=== PATIENT | female | born 1965 | race Two or more races ===

== ENCOUNTER 2022-04-04 17:57 | Inpatient (IN) | payer MEDICAID ==
[~2022-04-04] VITALS: Ht 172.7 cm; Wt 90.7 kg
[2022-04-04 18:15] VITALS: BP 141/66
[2022-04-04] MEDS ORDERED: ACETAMINOPHEN 650 MG SUPP RC ONE (18:25)
[2022-04-04] MEDS ORDERED: VANCOMYCIN 1,000 MG in DEXTROSE 5% 250 ML IV ONE (18:40)
--- NOTE | 2022-04-04 18:57 | NUR ---
ELAINE AND FLU SWABS COLLECTED AND HANDED TO TAX APPRAISER
[2022-04-04] MEDS ORDERED: VANCOMYCIN 1,000 MG VIAL ONE ×2 (19:02→21:53)
[2022-04-04 19:05] LABS: BASOPHILS % (AUTO) 0.1 % (0.0-2.0); HEMATOCRIT 30.4 % (36-48); HEMOGLOBIN 10.2 g/dL (12.0-16.0); LYMPHOCYTES # (AUTO) 0.4 K/uL (2.5-16.5); LYMPHOCYTES % (AUTO) 2.4 % (20.5-51.1); MEAN CORPUSCULAR HEMOGLOBIN 29 pg (27-31); MEAN CORPUSCULAR HGB CONC 34 g/dL (33-37); MONOCYTES # (AUTO) 0.2 K/uL (0.8-1.0); MONOCYTES % (AUTO) 1.4 % (1.7-9.3); NEUTROPHILS # (AUTO) 16.1 K/uL (1.8-7.7); NEUTROPHILS % (AUTO) 96.1 % (42.2-75.2); PLATELET COUNT (AUTO) 116 K/uL (140-450); RED BLOOD CELL COUNT(AUTO) 3.54 MIL/uL (4.20-5.40); RED CELL DISTRIBUTION WIDTH 15.4 % (11.6-13.7); WHITE BLOOD COUNT (AUTO) 16.8 K/uL (4.8-10.8)
--- NOTE | 2022-04-04 19:14 | NUR ---
56/F BIBA FROM HOME. PER EMS 911 WAS CALLED STATING PATIENT ALTERED TODAY, C/O LEFT LEG REDNESS AND SWELLING. UPON ARRIVAL PATIENT FEBRILE AT 101.7. PATIENT C/O WEAKNESS STATING "IM REALLY TIRED." PATIENT IN AND OUT OF SLEEP WHEN SPEAKING WITH HER, PATIENT ON BEDSIDE TRACKWALKER, DR. MACHUCA AWARE OF PATIENT.
--- NOTE | 2022-04-04 19:32 | NUR ---
PATIENT TEMP 102.4, DR. MACHUCA MADE AWARE.
--- NOTE | 2022-04-04 19:32 | NUR ---
Pt report given to ARIELA CUEVAS. Transfer of care at this time.
[2022-04-04 19:37] LABS: ALBUMIN 2.6 g/dL (3.4-5.0); ANION GAP 11.5 (8-16); CARBON DIOXIDE 22.1 mmol/L (21-32); CREATININE 0.9 mg/dL (0.6-1.3); TOTAL BILIRUBIN 0.7 mg/dL (0.0-1.0)
[2022-04-04 19:47] LABS: POTASSIUM 2.6 mmol/L (3.5-5.1)
[2022-04-04 20:12] LABS: PROTHROMBIN TIME 12.7 secs (10.8-13.4)
[2022-04-04 20:21] LABS: CKMB RELATIVE INDEX 0.7 (0.0-2.5); CREATINE KINASE MB 1.7 ng/mL (0-3.6)
[2022-04-04] MEDS ORDERED: NACL 0.9% 2,000 ML IV ONE (20:50)
[2022-04-04] MEDS ORDERED: cefTRIAXone 1,000 MG VIAL ONE (21:55)
--- NOTE | 2022-04-04 22:22 | NUR ---
TO CT VIA [facility]
--- NOTE | 2022-04-05 01:00 | NUR ---
RESTING QUIETLY. C/O BEING COLD. WARM BLANKETS GIVEN
[2022-04-05] MEDS: NACL 0.9% 1,000 ML IV SCH ×2 (01:09→11:11)
--- NOTE | 2022-04-05 03:08 | NUR ---
AMBULATED TO BR WITH MINIMAL ASSIST
[2022-04-05 05:03] LABS: APPEARANCE,URINE CLEAR (CLEAR); BILIRUBIN,URINE 1+ (NEGATIVE); BLOOD, URINE 3+ (NEGATIVE); COLOR,URINE BROWN (YELLOW); LEUKOCYTE ESTERASE ,URINE NEGATIVE (NEGATIVE); NITRITE, URINE NEGATIVE (NEGATIVE); UGLUCOSE NEGATIVE (NEGATIVE)
[2022-04-05 05:10] LABS: RBC,URINE 20-50 /HPF (0-5)
[2022-04-05 05:11] LABS: TRICHOMONAS,URINE None Seen /HPF (None Seen); YEAST,URINE Rare /HPF (None Seen)
[2022-04-05 05:13] LABS: BARBITURATE, URINE NEGATIVE ng/ml (NEG <=200); BENZODIAZEPINE, URINE NEGATIVE ng/mL (NEG <=200); CANNABINOID, URINE NEGATIVE ng/mL (NEG <=50); COCAINE, URINE NEGATIVE ng/mL (NEG <=300); OPIATE, URINE NEGATIVE ng/mL (NEG <=2000); PHENCYCLIDINE SCREEN,URINE POSITIVE ng/mL (NEG <=25)
[2022-04-05 06:35] LABS: HEMATOCRIT 31.6 % (36-48); HEMOGLOBIN 10.7 g/dL (12.0-16.0); MEAN CORPUSCULAR HEMOGLOBIN 29 pg (27-31); MEAN CORPUSCULAR HGB CONC 34 g/dL (33-37); MEAN CORPUSCULAR VOLUME 85.8 fL (80-94); PLATELET COUNT (AUTO) 125 K/uL (140-450); RED BLOOD CELL COUNT(AUTO) 3.68 MIL/uL (4.20-5.40); RED CELL DISTRIBUTION WIDTH 15.7 % (11.6-13.7); WHITE BLOOD COUNT (AUTO) 14.7 K/uL (4.8-10.8)
[2022-04-05] MEDS: HYDROcodone/APAP 5/325 MG 1 TAB TAB PO PRN ×3 (08:00→21:56)
--- NOTE | 2022-04-05 08:00 | NUR ---
56YR OLD FEMALE C/O LOWER EXT SWELLING. PT IS TELE ADMIT. TELE HOLD. DX OF CELLULITIS TO LOWER EXT AND SESPIS. PT IS A&OX4. LOWER LEG SWELLING /PAIN 04/01. SKIN COLOR ON THEODORE LEGS ARE NICHOLS/BLACK. WARM TO THE TOUCH. RESP EVEN AND UNLABORED. ON FOUNTAIN ATTENDANT AT BEDSIDE. HOB ELEVATED. BED AT LOWEST LEVEL. PENDING BED AVAIL.
--- NOTE | 2022-04-05 08:15 | NUR ---
PT MOVED TO ER BED 2.
[2022-04-05 08:31] LABS: ALBUMIN 2.7 g/dL (3.4-5.0); ANION GAP 8.2 (8-16); CARBON DIOXIDE 26.4 mmol/L (21-32); CREATININE 0.9 mg/dL (0.6-1.3); TOTAL BILIRUBIN 0.9 mg/dL (0.0-1.0)
[2022-04-05 08:32] LABS: POTASSIUM 2.6 mmol/L (3.5-5.1)
--- NOTE | 2022-04-05 08:40 | NUR ---
RECEIVED CRITICAL LAB OF POTASSIUM 2.6. DR TAMEZ NOTIFIED. RECEIVED ORDERS OF KDUR 40MEQ PO AND KRIDER 40MEQ IV. ORDERS PLACED.
[2022-04-05] MEDS ORDERED: POTASSIUM CHLORIDE 10 MEQ TABER PO SCH (08:43)
[2022-04-05 08:44] LABS: BASOPHILS % (MANUAL) 0 % (0-2); EOSINOPHILS % (MANUAL) 0 % (0-4); LYMPHOCYTES % (MANUAL) 4 % (20-46); MONOCYTES % (MANUAL) 2 % (5-12)
--- NOTE | 2022-04-05 09:14 | NUR ---
PT IS EATING BREAKFAST AT BEDSIDE.
[2022-04-05] MEDS: KCL 20 MEQ/WATER INJ PREMIX 200 ML IV SCH ×2 (09:39→12:05)
--- NOTE | 2022-04-05 10:09 | NUR ---
RESTARTED IV SITE IN L AC 20G.
[2022-04-05] MEDS ORDERED: ACETAMINOPHEN 325 MG TAB PO PRN (10:15)
[2022-04-05] MEDS ORDERED: ONDANSETRON 4 MG/2 ML VIAL IM/IVP PRN (10:15)
[2022-04-05] MEDS ORDERED: ZOLPIDEM 5 MG TAB PO PRN (10:15)
[2022-04-05] MEDS ORDERED: guaiFENesin DM 200/20 MG-10 ML 10 ML UDC PO PRN (10:15)
[2022-04-05] MEDS ORDERED: DOCUSATE SODIUM 100 MG GELCAP PO PRN (10:15)
--- NOTE | 2022-04-05 10:41 | NUR ---
PATIENT HAS BEEN SCREENED AND CATEGORIZED LOW NUTRITION RISK. PATIENT WILL BE SEEN WITHIN 7 DAYS OF ADMISSION. 04/05/22-04/11/[address]
--- NOTE | 2022-04-05 10:44 | NUR ---
DR TAMEZ, ADMITTING MD AT BEDSIDE EVALUATING PT
[2022-04-05 12:12] LABS: CHOL/HDL RATIO 1.9 (1-4.5); FREE T4 (FREE THYROXINE) 0.98 ng/dL (0.76-1.46); MAGNESIUM 1.8 mg/dL (1.8-2.4); PHOSPHORUS 3.1 mg/dL (2.5-4.9); THYROID STIMULATING HORMONE 0.42 uIU/mL (0.34-3.74)
--- NOTE | 2022-04-05 13:15 | NUR ---
PT RESTING. IS TEARFUL DUE TO K+ IV ; PT WAS ADVISED ON THE BURNING SENSATION WHILE INFUSION. PT WAS MEDICATED FOR PAIN. 04/01. HOB ELEVATED. SIDE UP X1. ON THREAD ROLLER. BED AT LOWEST POSITON
--- NOTE | 2022-04-05 13:48 | NUR ---
PERSONAL BELONGINGS AND MED RECONCILE HAVE BEEN UPDATED AND COMPLETED.
--- NOTE | 2022-04-05 14:49 | NUR ---
WALKED PATIENT TO THE BATHROOM. GAIT STEADY, ASSIST STILL NEEDED. URINE OBTAINED AND SENT TO LAB
--- NOTE | 2022-04-05 16:58 | NUR ---
PATIENT SLEEPING. RESP EVEN AND UNLABORED. NO DISTRESS NOTED. PT IS ON BEDSIDE PROOFER. HOB ELEVATED. SIDE RAILS UPX2 BED AT LOWEST POSITION
--- NOTE | 2022-04-05 18:49 | NUR ---
DAUGHTER CALLED PATIENT
--- NOTE | 2022-04-05 19:24 | NUR ---
AWAKE, STANDING AT BEDSIDE BATHING
--- NOTE | 2022-04-05 19:50 | NUR ---
AMBULATED TO BR WITH STEADY GAIT
--- NOTE | 2022-04-05 20:30 | NUR ---
PT ADMITTED TO [facility] FROM ER THRU [facility] WITH A DIAGNOSIS OF SEPSIS AND CELLULITIS. PT IS AMBULATORY, AOX4, ABLE TO FOLLOW COMMANDS AND VERBALIZE NEEDS. PT IS ON ROOM AIR AND IN REGULAR DIET. PT HAS IV SITED ON LEFT AC GAUGE 20, LEFT WRIST GAUGE 22 AND RIGHT HAND GAUGE 20 RUNNING WITH NS AT 60ML/HR. PT HAS A LEFT LEG SWELLING. PT IS ORIENTED TO HOSPITAL, ROOM, BED BUTTON AND CALL LIGHT. ALL SAFETY MEASURES IMPLEMENTED. CALL LIGHT WITHIN REACH. BED WHEELS LOCKED AND BED IN LOW POSITION.
[2022-04-05] MEDS ORDERED: cefTRIAXone 1,000 MG VIAL ONE (21:49)
--- NOTE | 2022-04-05 21:56 | NUR ---
PT ASKED FOR PAIN MEDICATION FOR HER LEFT LEG. PRN PAIN MEDICATION WAS GIVEN TO PT PER MD ORDER. ALL SAFETY MEASURES IMPLEMENTED. CALL LIGHT WITHIN REACH. BED WHEELS LOCKED AND BED IN LOW POSITION.
--- NOTE | 2022-04-05 22:04 | NUR ---
PRESCRIBED MEDICATION WAS GIVEN TO PT PER MD ORDER. PT TOLERATED IT WELL. ALL SAFETY MEASURES IMPLEMENTED. CALL LIGHT WITHIN REACH. BED WHEELS LOCKED AND BED IN LOW POSITION.
--- NOTE | 2022-04-05 22:20 | NUR ---
PT WAS GIVEN SLEEPING MEDICATION PER PT REQUEST. PT TOLERATED IT WELL. ALL SAFETY MEASURES IMPLEMENTED. CALL LIGHT WITHIN REACH. BED WHEELS LOCKED AND BED IN LOW POSITION.
--- NOTE | 2022-04-06 | NUR ---
PT ASSISTED TO THE BATHROOM AND GAVE WASH CLOTHES. ALL SAFETY MEASURES IMPLEMENTED. BED WHEELS ON LOCKED. BED IN LOW POSITION AND CALL LIGHT WITHIN REACH.
--- NOTE | 2022-04-06 02:00 | NUR ---
PT IS SLEEPING. CHEST RISE AND FALL SYMMETRICALLY NOTED. NO S/S OF RESPIRATORY DISTRESS NOTED. ALL SAFETY MEASURES IMPLEMENTED. BED WHEELS ON LOCKED. BED IN LOW POSITION AND CALL LIGHT WITHIN REACH.
[2022-04-06 04:00] VITALS: BP 135/72
--- NOTE | 2022-04-06 04:00 | NUR ---
PT STILL ON SLEEP WITH THE VS OF BP-135/72, P-81, T-98.7, RR-19 SATING AT 96%. CHEST RISE AND FALL SYMMETRICALLY NOTED. NO S/S OF RESPIRATORY DISTRESS. ALL SAFETY MEASURES IMPLEMENTED. BED WHEELS ON LOCKED. BED IN LOW POSITION AND CALL LIGHT WITHIN REACH.
[2022-04-06] MEDS: HYDROcodone/APAP 5/325 MG 1 TAB TAB PO PRN (04:48)
--- NOTE | 2022-04-06 04:48 | NUR ---
PT COMPLAIN FOR BACK PAIN. PRN PAIN MEDICATION WAS GIVEN TO PT PER MD ORDER. ALL SAFETY MEASURES IMPLEMENTED. BED WHEELS ON LOCKED. BED IN LOW POSITION AND CALL LIGHT WITHIN REACH.
[2022-04-06 05:43] LABS: BASOPHILS % (AUTO) 0.2 % (0.0-2.0); EOSINOPHILS # (AUTO) 0.1 K/uL (0-0.4); EOSINOPHILS % (AUTO) 1.3 % (0.0-4.0); HEMATOCRIT 29.8 % (36-48); HEMOGLOBIN 10.6 g/dL (12.0-16.0); LYMPHOCYTES # (AUTO) 0.9 K/uL (2.5-16.5); LYMPHOCYTES % (AUTO) 8.6 % (20.5-51.1); MEAN CORPUSCULAR HEMOGLOBIN 30 pg (27-31); MEAN CORPUSCULAR HGB CONC 36 g/dL (33-37); MEAN CORPUSCULAR VOLUME 84.4 fL (80-94); MONOCYTES # (AUTO) 0.3 K/uL (0.8-1.0); MONOCYTES % (AUTO) 2.5 % (1.7-9.3); NEUTROPHILS # (AUTO) 9.4 K/uL (1.8-7.7); NEUTROPHILS % (AUTO) 87.4 % (42.2-75.2); PLATELET COUNT (AUTO) 113 K/uL (140-450); RED BLOOD CELL COUNT(AUTO) 3.52 MIL/uL (4.20-5.40); RED CELL DISTRIBUTION WIDTH 15.4 % (11.6-13.7); WHITE BLOOD COUNT (AUTO) 10.7 K/uL (4.8-10.8)
[2022-04-06 05:54] LABS: ANION GAP 12.8 (8-16); CARBON DIOXIDE 22.5 mmol/L (21-32); CREATININE 0.7 mg/dL (0.6-1.3); POTASSIUM 3.3 mmol/L (3.5-5.1)
--- NOTE | 2022-04-06 07:08 | NUR ---
PT IS STABLE. ENDORSED PT TO MORNING SHIFT NURSE FOR CONTINUITY OF CARE.
--- NOTE | 2022-04-06 07:14 | NUR ---
RECEIVED REPORT FROM ELECTRIC MOTOR WINDER NURSE FOR CONTINUITY OF CARE. PATIENT AWAKE VERBALLY RESPONSIVE NO SIGN AND SYMPTOMS OF ANY DISCOMFORT. RESPIRATION EVEN AND NOT LABORED NO SHORTNESS OF BREATH. IV SITE ON LEFT AC ANGELO 20, LEFT WRIST ANGELO 22 AND NS OF 60 RUNNING ON HER RIGHT HAND ANGELO 20, ALL SAFETY MEASURE IN PLACE. LEAD FOR HEART MONITOR INPLACE.
[2022-04-06 08:00] VITALS: BP 134/74
[2022-04-06 08:07] LABS: T4 (THYROXINE) 6.8 ug/dL (4.5-12.0)
[2022-04-06] MEDS: PANTOPRAZOLE 40 MG TABEC PO SCH (09:28)
[2022-04-06] MEDS: NACL 0.9% 1,000 ML IV SCH (10:20)
[2022-04-06] MEDS: POTASSIUM CHLORIDE 10 MEQ TABER PO PRN (11:15)
[2022-04-06 12:00] VITALS: BP 131/74
--- NOTE | 2022-04-06 15:45 | NUR ---
ARLEN ATTEMPTED TO MEET WITH PATIENT AT BEDSIDE TO COMPLETE ASSESSMENT. PATIENT STRUGGLED WITH CONFIRMING INFORMATION ON FILE. PATIENT REPORTS LIVING WITH HER DAUGHTER, NOVEMBER AT THE ADDRESS LISTED. PATIENT UNABLE TO PROVIDE PHONE NUMBER FOR DAUGHTER. Addendum: 04/07/22 at 1311 by Maira Sinclair ARLEN ATTEMPTED TO CALL EMERGENCY CONTACT PHONE NUMBER ON FILE, HOWEVER, PHONE NUMBER IS NOT A WORKING NUMBER. ARLEN CONTACTED [place] [employer]PT TO CONDUCT WELLNESS/ NOTIFICATION CHECK ON DAUGHTER, NOVEMBER WHO IS REPORTED TO RESIDE AT THE ADDRESS LISTED ON FILE WITH PATIENT. POLICE TO BE DISPATCHED TO ADDRESS. POLICE DISPATCH PROVIDED WITH ARLEN INFORMATION ONCE CONTACT MADE. Addendum: 04/07/22 at 1410 by Maira Sinclair ARLEN FIELDED CALL FROM PATIENTS DAUGHTER JIMI WHO WAS CONTACTED BY POLICE. JIMI REPORTS THAT PATIENT RESIDES WITH SUYAPA PATRICK WHO PROVIDES PT WITH NEEDED CARE. JIMI WAS NOTIFIED THAT PATIENT IS READY FOR DC. JIMI REPORTS PT'S SON IN LAW WILL REPLANTING MACHINE CREW PATIENT. Addendum: 04/07/22 at 1439 by Maira WARNER PATIENT STRUGGLED TO CONFIRM VARIOUS DETAILS ON FILE. PATIENT REPORTS LIVING AT THE ADDRESS LISTED WITH HER DAUGHTER, NOVEMBER. PATIENT DENIES MENTAL HEALTH/ SUBSTANCE USE HX, HOWEVER PATIENT TESTED POSITIVE FOR PHENCYCLIDINE AND ALCOHOL, UPON ADMISSION. PT REPORTS RECEIVING SOCIAL SECURITY INCOME SOURCE. PATIENT REPORTS NONCOMPLIANCE WITH MEDICATION SHE BELIEVES DIABETES IN WELL CONTROLLED. ARLEN PROVIDE PATIENT WITH DIABETES RESOURCES. ARLEN ENCOURAGED AND EDUCATED PATIENT ABOUT THE IMPORTANCE OF MEDICATION COMPLIANCE. PATIENT RECEPTIVE. ARLEN FIELDED CALL FROM JIMI, (PT'S DAUGHTER) AND GATHERED COLLATERAL INFORMATION. JIMI PROVIDED COLLATERAL INFORMATION KNOWN TO HER, PT'S DAUGHTER CONFIRMS THAT PATIENT RESIDES WITH PT'S DAUGHTER NOVEMBER. SUYAPA AND PT'S EX-PARTNER PROVIDES PATIENT WITH ASSISTANCE IN ALL ADL'S. JIMI REPORTS THAT PATIENT IS NONCOMPLIANT WITH MEDICATION USE, PATIENT FORGETS AND/OR CHOOSES NOT TO TAKE. ARLEN SPOKE TO JIMI ABOUT THE IMPORTANCE OF RX COMPLIANCE. JIMI WAS IN UNDERSTANDING. JIMI REPORTS HX OF ALCOHOL USE SEVERAL YEARS AGO BUT TO HER KNOWLEDGE PATIENT NO LONGER CONSUMES. JIMI UNABLE TO RECALL PT'S LAST VISIT WITH PCP. JIMI REPORTS SUYAPA UNAVAILABLE TO PROVIDE ADDITIONAL COLLATERAL INFORMATION, AT THIS TIME. DC PLAN IS FOR PATIENT TO RETURN HOME WITH FAMILY PROVIDING TRANSPORTATION AND AIDING IN REQUIRED CARE, IF NEEDED. ARLEN PROVIDED PATIENT WITH SUBSTANCE USE RESOURCES, DIABETES RESOURCES WELL MENTAL HEALTH RESOURCES.
[2022-04-06 16:00] VITALS: BP 135/56
--- NOTE | 2022-04-06 19:13 | NUR ---
GAVE REPORT TO GRINDER NEEDLE TIP NURSE FOR CONTINUITY OF CARE.
--- NOTE | 2022-04-06 19:14 | NUR ---
RECEIVED REPORT FROM DAY SHIFT NURSE FOR CONTINUITY OF PT CARE. PT IS ON BED, AWAKE, ALERT AND ORIENTED X 4. PT ABLE TO VERBALIZED NEEDS. SALINE LOCK INTACT AND PATENT, NO SIGN/SYMPTOM OF INFECTION OR PHLEBITIS. PT DENIES PAIN AT THIS TIME. CONTINUE TO MONITOR.
[2022-04-06 20:00] VITALS: BP 124/76
[2022-04-07] VITALS: BP 110/56
--- NOTE | 2022-04-07 00:15 | NUR ---
PT AMBULATES TO RESTROOM INDEPENDENTLY. NO FALL OR INJURY.
[2022-04-07] MEDS: HYDROcodone/APAP 5/325 MG 1 TAB TAB PO PRN (02:15)
--- NOTE | 2022-04-07 02:15 | NUR ---
PT COMPLAINTS OF PAIN ON LOWER ABDOMEN AND BACK AREA 01/30. PAIN MEDICATION NORCO ADMINISTERED ORDER.
[2022-04-07] MEDS: NACL 0.9% 1,000 ML IV SCH (03:00)
--- NOTE | 2022-04-07 03:15 | NUR ---
PT IS SLEEPING SOUNDLY, NO FACIAL GRIMACING.
[2022-04-07 04:00] VITALS: BP 103/56
[2022-04-07 05:48] LABS: BASOPHILS % (AUTO) 0.2 % (0.0-2.0); EOSINOPHILS # (AUTO) 0.1 K/uL (0-0.4); EOSINOPHILS % (AUTO) 2.2 % (0.0-4.0); HEMATOCRIT 26.2 % (36-48); HEMOGLOBIN 8.9 g/dL (12.0-16.0); LYMPHOCYTES # (AUTO) 0.9 K/uL (2.5-16.5); LYMPHOCYTES % (AUTO) 15.8 % (20.5-51.1); MEAN CORPUSCULAR HEMOGLOBIN 29 pg (27-31); MEAN CORPUSCULAR HGB CONC 34 g/dL (33-37); MEAN CORPUSCULAR VOLUME 85.8 fL (80-94); MONOCYTES # (AUTO) 0.3 K/uL (0.8-1.0); MONOCYTES % (AUTO) 4.4 % (1.7-9.3); NEUTROPHILS # (AUTO) 4.6 K/uL (1.8-7.7); NEUTROPHILS % (AUTO) 77.4 % (42.2-75.2); PLATELET COUNT (AUTO) 120 K/uL (140-450); RED BLOOD CELL COUNT(AUTO) 3.05 MIL/uL (4.20-5.40); RED CELL DISTRIBUTION WIDTH 15.2 % (11.6-13.7)
[2022-04-07 06:37] LABS: CARBON DIOXIDE 23.2 mmol/L (21-32); CREATININE 0.7 mg/dL (0.6-1.3); POTASSIUM 3.2 mmol/L (3.5-5.1)
--- NOTE | 2022-04-07 07:29 | NUR ---
PT IS ON STABLE CONDITION. DENIES OF PAIN. ALL SAFETY MEASURES IN PLACE. CALL LIGHT WITHIN THE REACH. ENDORSED TO DAY SHIFT NURSE FOR CONTINUITY OF CARE.
--- NOTE | 2022-04-07 07:30 | NUR ---
RECEIVED ENDORSEMENT FROM FINANCIAL SERVICES AUDITOR NURSE FOR CONTINUITY OF CARE. PATIENT AWAKE ALERT AND ORIENTED SITTING AT THE EDGE OF HER BED WAITING FOR BREAKFAST. DENIES PAIN OR ANY DISCOMFORT. RESPIRATION EVEN AND NOT LABORED NO SHORTNESS OF BREATH. ALL SAFETY MEASURE IN PLACE.
[2022-04-07 08:00] VITALS: BP 124/75
[2022-04-07] MEDS: PANTOPRAZOLE 40 MG TABEC PO SCH (08:28)
[2022-04-07] MEDS: POTASSIUM CHLORIDE 10 MEQ TABER PO PRN (08:29)
--- NOTE | 2022-04-07 08:30 | NUR ---
PATIENT GIVEN HER DUE MEDICATION AND KDUR FOR K LEVEL OF3.2 TOLERATED WELL. EATING BREAKFAST WELL. CALL LIGHT WITH IN EASY REACH.
--- NOTE | 2022-04-07 09:08 | NUR ---
PATIENT IS ASKING IF SHE CAN TAKE SHOWER DR. HUBER RESPONDED YES.
--- NOTE | 2022-04-07 10:02 | NUR ---
PATIENT IS ASSISTED BY WEB SITE SPECIALIST HAVING SHOWER AT THIS TIME.
[2022-04-07] MEDS ORDERED: IBUP-2213 PO (11:57)
--- NOTE | 2022-04-07 12:00 | NUR ---
PATIENT ON BED RESTING WAITING FOR HER LUNCH NO DISTRESS NOTED. NO ADVERSE REACTION NOTED ON IV ANTIBIOTIC.
[2022-04-07 13:59] VITALS: BP 124/75
[2022-04-07] MEDS ORDERED: AMOX-999 PO (14:13)
--- NOTE | 2022-04-07 14:46 | NUR ---
ALERT ORIENTED GIVEN DISCHARGE PACKET WITH INSTRUCTION VERBALIZED UNDERSTANDING. INFORM PATIENT TO WAIT FOR THE ONE WHO'S GOING TO PICK HER UP.
--- NOTE | 2022-04-07 15:00 | NUR ---
PATIENT NAME BAND AND IV SITE REMOVED WITH CATHETER INTACT. ALL BELONGING GIVEN TO PATIENT AND HER DISCHARGE PACKET. WHEELED PATIENT OUTSIDE THE FRONT LOBBY TERRITORY SALES PROFESSIONAL BY SON IN LAW. PATIENT ON STABLE CONDITION DENIES PAIN OR ANY DISCOMFORT.
== END 2022-04-07 14:55 | disposition home or self-care (01) | DRG 720 ==
LOC: MED 17:57 → MTU 04-05 00:08
PROVIDERS: ADMIT Family Medicine; ATTEND Family Medicine
DX: A41.9 Sepsis, unspecified organism (principal); G92.9 Unspecified toxic encephalopathy; E44.0 Moderate protein-calorie malnutrition; D69.6 Thrombocytopenia, unspecified; E86.0 Dehydration; L03.116 Cellulitis of left lower limb; D64.9 Anemia, unspecified; E11.9 Type 2 diabetes mellitus without complications; I10 Essential (primary) hypertension; F16.10 Hallucinogen abuse, uncomplicated; F10.10 Alcohol abuse, uncomplicated; Y90.9 Presence of alcohol in blood, level not specified; Z20.822 Contact with and (suspected) exposure to COVID-19; Z68.30 Body mass index [BMI] 30.0-30.9, adult
CPT/HCPCS: 36415; 70450; 71045; 73590; 73630; 80048; 80053; 80305; 81001; 82140; 82150; 82550; 82553; 83036; 83605; 83690; 83735; 83880; 84100; 84436; 84439; 84443; 84479; 84484; 85025; 85610; 85730; 87040; 87081; 87086; 90471; 90715; 93005; 93970; 96365; 96367; 97163-GP; 99285; G0482; J0696; J3370; J3480; J7060; Q0092